=== PATIENT | male | born 1970 | race Two or more races ===

== ENCOUNTER 2020-09-03 17:05 | Inpatient (IN) | payer OTHER ==
[2020-09-03 22:31] VITALS: BMI 39.5
[2020-09-03] MEDS ORDERED: IBUPROFEN 400 MG TABLET (FP) PO PRN (23:20)
[2020-09-03] MEDS ORDERED: MAGNESIUM HYDROX 2400MG/30ML ORAL SUSPENSION 30 ML CUP PO PRN (23:20)
[2020-09-03] MEDS ORDERED: MENTHOL/PHENOL 1 EACH UD MM PRN (23:20)
[2020-09-03] MEDS ORDERED: ONDANSETRON *ODT* 4 MG TABLET SL PRN (23:20)
[2020-09-03] MEDS ORDERED: BISMUTH SUBSALICYLATE 524 MG/30 ML PO PRN (23:20)
[2020-09-03] MEDS ORDERED: diazePAM 5 MG TABLET PO PRN (23:20)
[2020-09-03] MEDS ORDERED: ACETAMINOPHEN 325 MG TABLET (FP) PO PRN ×2 (23:20)
[2020-09-03] MEDS ORDERED: MAG HYDROX/AL HYDROX/SIMETH 30 ML UNIT-DOSE CUP PO PRN (23:20)
[2020-09-03] MEDS ORDERED: MAGNESIUM CITRATE 300 ML BOTTLE PO PRN (23:20)
[2020-09-04] MEDS: diazePAM 5 MG TABLET PO SCH ×5 (02:49→22:11)
[2020-09-04] MEDS ORDERED: hydrOXYzine PAMOATE 25 MG CAPSULE (FP) PO PRN (09:20)
[2020-09-04] MEDS ORDERED: cloNIDine HCL 0.1 MG TABLET PO PRN (09:20)
[2020-09-04] MEDS: PRENATAL VITAMINS W/ FOLIC ACID TABLET (FP) PO SCH (10:48)
[2020-09-04] MEDS: NICOTINE 21 MG/24 HOURS TOPICAL PATCH TD SCH (10:48)
[2020-09-04] MEDS: METHOCARBAMOL 500 MG TABLET PO PRN (10:50)
[2020-09-04 12:33] LABS: HEMATOCRIT 42.9 % (35.4-49); HEMOGLOBIN 14.7 GM/dL (11.7-16.9); MCH 31.9 pg (25.7-33.7); MCHC 34.3 g/dl (32.0-35.9); MEAN PLT VOLUME 7.8 fl (7.5-11.1); PLATELET COUNT 240 10^3/uL (134-434); RBC 4.61 M/mm3 (4.00-5.60); RDW 13.3 % (11.9-15.9); WHITE BLOOD COUNT 5.3 K/mm3 (4.0-10.0)
[2020-09-04 12:53] LABS: ALBUMIN 3.7 g/dl (3.4-5.0)
[2020-09-04 13:05] LABS: CALCIUM 8.2 mg/dL (8.5-10.1)
[2020-09-04 13:06] LABS: BLOOD UREA NITROGEN 15.6 mg/dL (7-18)
[2020-09-04 13:09] LABS: CREATININE 1.1 mg/dL (0.55-1.3)
[2020-09-04 13:11] LABS: BILIRUBIN,TOTAL 1.1 mg/dL (0.2-1); TOT PROT 6.2 g/dl (6.4-8.2)
[2020-09-04] MEDS: ARIPiprazole 10 MG TABLET PO SCH (22:11)
[2020-09-04] MEDS: THIAMINE HCL 100 MG TABLET (FP) PO SCH (22:11)
[2020-09-04] MEDS: MELATONIN 5 MG TABLETS PO SCH (22:11)
[2020-09-05] MEDS: diazePAM 5 MG TABLET PO SCH ×3 (05:37→22:05)
[2020-09-05] MEDS ORDERED: LOPERAMIDE HCL 2 MG CAPSULE PO PRN (08:58)
[2020-09-05] MEDS ORDERED: DICYCLOMINE HCL 10 MG CAPSULE PO ONE (10:00)
[2020-09-05] MEDS: METHOCARBAMOL 500 MG TABLET PO PRN (10:12)
[2020-09-05] MEDS: PRENATAL VITAMINS W/ FOLIC ACID TABLET (FP) PO SCH (10:12)
[2020-09-05] MEDS: NICOTINE 21 MG/24 HOURS TOPICAL PATCH TD SCH (10:12)
[2020-09-05] MEDS: THIAMINE HCL 100 MG TABLET (FP) PO SCH (22:06)
[2020-09-05] MEDS: MELATONIN 5 MG TABLETS PO SCH (22:06)
[2020-09-05] MEDS: ARIPiprazole 10 MG TABLET PO SCH (22:06)
[2020-09-05] MEDS: NICOTINE POLACRILEX 2 MG GUM BUC PRN (22:06)
[2020-09-06] MEDS: diazePAM 5 MG TABLET PO SCH ×2 (05:36→17:52)
[2020-09-06] MEDS: PRENATAL VITAMINS W/ FOLIC ACID TABLET (FP) PO SCH (10:11)
[2020-09-06] MEDS: NICOTINE 21 MG/24 HOURS TOPICAL PATCH TD SCH (10:11)
[2020-09-06] MEDS: NICOTINE POLACRILEX 2 MG GUM BUC PRN ×2 (17:53→22:02)
[2020-09-06] MEDS: THIAMINE HCL 100 MG TABLET (FP) PO SCH (22:01)
[2020-09-06] MEDS: MELATONIN 5 MG TABLETS PO SCH (22:01)
[2020-09-06] MEDS: ARIPiprazole 10 MG TABLET PO SCH (22:01)
[2020-09-07] MEDS ORDERED: diazePAM 5 MG TABLET PO ONE (06:00)
[2020-09-07 09:05] VITALS: TEMP 97.1
[2020-09-07] MEDS: PRENATAL VITAMINS W/ FOLIC ACID TABLET (FP) PO SCH (10:06)
[2020-09-07] MEDS: NICOTINE POLACRILEX 2 MG GUM BUC PRN (10:07)
[2020-09-07] MEDS: NICOTINE 21 MG/24 HOURS TOPICAL PATCH TD SCH (10:08)
[2020-09-07 13:03] VITALS: BP 116/71; PULSE 69
== END 2020-09-07 12:11 | disposition other institution (70) | DRG 775 ==
LOC: YASAS 17:05 → Y3N 22:03
PROVIDERS: ADMIT Allergy & Immunology; ATTEND Allergy & Immunology
PROC: HZ2ZZZZ Detoxification Services for Substance Abuse Treatment (ICD-10-PCS; principal; 2020-09-03)
DX: F10.230 Alcohol dependence with withdrawal, uncomplicated (principal); F13.230 Sedative, hypnotic or anxiolytic dependence with withdrawal, uncomplicated; F17.210 Nicotine dependence, cigarettes, uncomplicated; F19.280 Other psychoactive substance dependence with psychoactive substance-induced anxiety disorder; F32.9 Major depressive disorder, single episode, unspecified; Z62.810 Personal history of physical and sexual abuse in childhood; Z86.69 Personal history of other diseases of the nervous system and sense organs; Z85.71 Personal history of Hodgkin lymphoma; Z91.013 Allergy to seafood
CPT/HCPCS: 36415; 80053; 85027; 86780; 93005; 93010; C9803; J0735; Q0162; U0003; U0005

== ENCOUNTER 2020-09-07 12:21 | Inpatient (IN) | payer OTHER ==
[2020-09-07] MEDS ORDERED: MAGNESIUM HYDROX 2400MG/30ML ORAL SUSPENSION 30 ML CUP PO PRN (12:52)
[2020-09-07] MEDS ORDERED: P-EPHED 60MG/TRIPROLIDI 2.5MG TABLET PO PRN (12:52)
[2020-09-07] MEDS ORDERED: MAG HYDROX/AL HYDROX/SIMETH 30 ML UNIT-DOSE CUP PO PRN (12:52)
[2020-09-07] MEDS ORDERED: LOPERAMIDE HCL 2 MG CAPSULE PO PRN (12:52)
[2020-09-07] MEDS ORDERED: guaiFENesin 200 MG/10 ML 10 ML UNIT-DOSE CUPS PO PRN (12:52)
[2020-09-07] MEDS ORDERED: MAGNESIUM CITRATE 300 ML BOTTLE PO PRN (12:52)
[2020-09-07] MEDS ORDERED: MENTHOL/PHENOL 1 EACH UD MM PRN (12:52)
[2020-09-07] MEDS: NICOTINE POLACRILEX 4 MG GUM BUC PRN ×2 (17:59→21:02)
[2020-09-07] MEDS ORDERED: ARIPiprazole 5 MG TABLET ONE (20:35)
[2020-09-07] MEDS: ARIPiprazole 10 MG TABLET PO SCH (20:59)
[2020-09-07] MEDS: THIAMINE HCL 100 MG TABLET (FP) PO SCH (21:00)
[2020-09-07] MEDS: MELATONIN 5 MG TABLETS PO SCH (21:00)
[2020-09-07] MEDS: hydrOXYzine PAMOATE 25 MG CAPSULE (FP) PO PRN (21:00)
[2020-09-08] MEDS: IBUPROFEN 400 MG TABLET (FP) PO PRN (05:58)
[2020-09-08] MEDS: NICOTINE POLACRILEX 4 MG GUM BUC PRN ×3 (05:59→21:23)
[2020-09-08] MEDS: PRENATAL VITAMINS W/ FOLIC ACID TABLET (FP) PO SCH (09:54)
[2020-09-08] MEDS ORDERED: buPROPion HCL 75 MG TABLET PO SCH (10:00)
[2020-09-08] MEDS ORDERED: MASKS NR ONE (19:10)
[2020-09-08] MEDS ORDERED: ARIPiprazole 5 MG TABLET ONE (19:43)
[2020-09-08] MEDS: ARIPiprazole 10 MG TABLET PO SCH (21:22)
[2020-09-08] MEDS: THIAMINE HCL 100 MG TABLET (FP) PO SCH (21:23)
[2020-09-08] MEDS: MELATONIN 5 MG TABLETS PO SCH (21:23)
[2020-09-08] MEDS: hydrOXYzine PAMOATE 25 MG CAPSULE (FP) PO PRN (21:23)
[2020-09-09] MEDS: PRENATAL VITAMINS W/ FOLIC ACID TABLET (FP) PO SCH (10:02)
[2020-09-09] MEDS: NICOTINE POLACRILEX 4 MG GUM BUC PRN ×2 (12:28→19:46)
[2020-09-09] MEDS: IBUPROFEN 400 MG TABLET (FP) PO PRN (12:28)
[2020-09-09] MEDS ORDERED: ARIPiprazole 5 MG TABLET ONE (19:26)
[2020-09-09] MEDS: THIAMINE HCL 100 MG TABLET (FP) PO SCH (21:09)
[2020-09-09] MEDS: hydrOXYzine PAMOATE 25 MG CAPSULE (FP) PO PRN (21:09)
[2020-09-09] MEDS: ARIPiprazole 10 MG TABLET PO SCH (21:09)
[2020-09-09] MEDS: MELATONIN 5 MG TABLETS PO SCH (21:09)
[2020-09-10] MEDS: PRENATAL VITAMINS W/ FOLIC ACID TABLET (FP) PO SCH (09:24)
[2020-09-10] MEDS: IBUPROFEN 400 MG TABLET (FP) PO PRN ×2 (15:13→21:34)
[2020-09-10] MEDS: NICOTINE POLACRILEX 4 MG GUM BUC PRN ×2 (17:41→21:36)
[2020-09-10] MEDS ORDERED: ARIPiprazole 5 MG TABLET ONE (19:23)
[2020-09-10] MEDS: hydrOXYzine PAMOATE 25 MG CAPSULE (FP) PO PRN (21:31)
[2020-09-10] MEDS: MELATONIN 5 MG TABLETS PO SCH (21:31)
[2020-09-10] MEDS: ARIPiprazole 10 MG TABLET PO SCH (21:31)
[2020-09-10] MEDS: THIAMINE HCL 100 MG TABLET (FP) PO SCH (21:31)
[2020-09-11] MEDS: PRENATAL VITAMINS W/ FOLIC ACID TABLET (FP) PO SCH (09:45)
[2020-09-11] MEDS: NICOTINE POLACRILEX 4 MG GUM BUC PRN ×2 (19:09→21:23)
[2020-09-11] MEDS ORDERED: ARIPiprazole 5 MG TABLET ONE (20:18)
[2020-09-11] MEDS: hydrOXYzine PAMOATE 25 MG CAPSULE (FP) PO PRN (21:23)
[2020-09-11] MEDS: ARIPiprazole 10 MG TABLET PO SCH (21:23)
[2020-09-11] MEDS: MELATONIN 5 MG TABLETS PO SCH (21:23)
[2020-09-11] MEDS: THIAMINE HCL 100 MG TABLET (FP) PO SCH (21:23)
[2020-09-12] MEDS: PRENATAL VITAMINS W/ FOLIC ACID TABLET (FP) PO SCH (09:25)
[2020-09-12] MEDS: NICOTINE POLACRILEX 4 MG GUM BUC PRN ×2 (17:32→21:21)
[2020-09-12] MEDS: THIAMINE HCL 100 MG TABLET (FP) PO SCH (21:18)
[2020-09-12] MEDS ORDERED: ARIPiprazole 5 MG TABLET ONE (21:18)
[2020-09-12] MEDS: MELATONIN 5 MG TABLETS PO SCH (21:18)
[2020-09-12] MEDS: QUEtiapine FUMARATE 100 MG TABLET (FP) PO SCH (21:19)
[2020-09-12] MEDS: ARIPiprazole 10 MG TABLET PO SCH (21:19)
[2020-09-13] MEDS: NICOTINE POLACRILEX 4 MG GUM BUC PRN ×2 (06:15→20:01)
[2020-09-13] MEDS: PRENATAL VITAMINS W/ FOLIC ACID TABLET (FP) PO SCH (09:13)
[2020-09-13] MEDS ORDERED: ARIPiprazole 5 MG TABLET ONE (20:08)
[2020-09-13] MEDS: MELATONIN 5 MG TABLETS PO SCH (21:22)
[2020-09-13] MEDS: QUEtiapine FUMARATE 100 MG TABLET (FP) PO SCH (21:23)
[2020-09-13] MEDS: hydrOXYzine PAMOATE 25 MG CAPSULE (FP) PO PRN (21:23)
[2020-09-13] MEDS: ARIPiprazole 10 MG TABLET PO SCH (21:23)
[2020-09-13] MEDS: THIAMINE HCL 100 MG TABLET (FP) PO SCH (21:23)
[2020-09-14] MEDS: ACETAMINOPHEN 325 MG TABLET (FP) PO PRN ×2 (06:41→11:44)
[2020-09-14] MEDS: PRENATAL VITAMINS W/ FOLIC ACID TABLET (FP) PO SCH (10:22)
[2020-09-14] MEDS: IBUPROFEN 400 MG TABLET (FP) PO PRN (17:23)
[2020-09-14] MEDS: NICOTINE POLACRILEX 4 MG GUM BUC PRN ×2 (17:24→21:02)
[2020-09-14] MEDS ORDERED: ARIPiprazole 5 MG TABLET ONE (19:51)
[2020-09-14] MEDS: hydrOXYzine PAMOATE 25 MG CAPSULE (FP) PO PRN (20:59)
[2020-09-14] MEDS: MELATONIN 5 MG TABLETS PO SCH (21:00)
[2020-09-14] MEDS: QUEtiapine FUMARATE 100 MG TABLET (FP) PO SCH (21:00)
[2020-09-14] MEDS: ARIPiprazole 10 MG TABLET PO SCH (21:00)
[2020-09-14] MEDS: THIAMINE HCL 100 MG TABLET (FP) PO SCH (21:00)
[2020-09-15] MEDS: ACETAMINOPHEN 325 MG TABLET (FP) PO PRN ×2 (06:25→17:20)
[2020-09-15] MEDS: NICOTINE POLACRILEX 4 MG GUM BUC PRN ×3 (06:27→21:21)
[2020-09-15] MEDS: PRENATAL VITAMINS W/ FOLIC ACID TABLET (FP) PO SCH (09:14)
[2020-09-15] MEDS ORDERED: ARIPiprazole 5 MG TABLET ONE (20:25)
[2020-09-15] MEDS: MELATONIN 5 MG TABLETS PO SCH (21:18)
[2020-09-15] MEDS: hydrOXYzine PAMOATE 25 MG CAPSULE (FP) PO PRN (21:18)
[2020-09-15] MEDS: THIAMINE HCL 100 MG TABLET (FP) PO SCH (21:19)
[2020-09-15] MEDS: QUEtiapine FUMARATE 100 MG TABLET (FP) PO SCH (21:19)
[2020-09-15] MEDS: ARIPiprazole 10 MG TABLET PO SCH (21:20)
[2020-09-16] MEDS: ACETAMINOPHEN 325 MG TABLET (FP) PO PRN ×2 (06:30→15:04)
[2020-09-16] MEDS: NICOTINE POLACRILEX 4 MG GUM BUC PRN ×3 (06:30→21:04)
[2020-09-16] MEDS: PRENATAL VITAMINS W/ FOLIC ACID TABLET (FP) PO SCH (09:04)
[2020-09-16] MEDS ORDERED: ARIPiprazole 5 MG TABLET ONE (19:36)
[2020-09-16] MEDS: THIAMINE HCL 100 MG TABLET (FP) PO SCH (21:03)
[2020-09-16] MEDS: ARIPiprazole 10 MG TABLET PO SCH (21:03)
[2020-09-16] MEDS: QUEtiapine FUMARATE 100 MG TABLET (FP) PO SCH (21:03)
[2020-09-16] MEDS: MELATONIN 5 MG TABLETS PO SCH (21:03)
[2020-09-16] MEDS: hydrOXYzine PAMOATE 25 MG CAPSULE (FP) PO PRN (21:04)
[2020-09-17] MEDS: ACETAMINOPHEN 325 MG TABLET (FP) PO PRN (06:26)
[2020-09-17] MEDS: NICOTINE POLACRILEX 4 MG GUM BUC PRN (06:28)
[2020-09-17 07:02] VITALS: BP 117/76; PULSE 63; TEMP 96.9
== END 2020-09-17 08:48 | disposition home or self-care (01) | DRG 772 ==
LOC: YASAS 12:21 → Y3E 12:23
PROVIDERS: ADMIT Allergy & Immunology; ATTEND Allergy & Immunology
PROC: HZ42ZZZ Group Counseling for Substance Abuse Treatment, Cognitive-Behavioral (ICD-10-PCS; principal; 2020-09-07)
DX: F10.20 Alcohol dependence, uncomplicated (principal); F13.20 Sedative, hypnotic or anxiolytic dependence, uncomplicated; F17.210 Nicotine dependence, cigarettes, uncomplicated; F19.280 Other psychoactive substance dependence with psychoactive substance-induced anxiety disorder; F19.282 Other psychoactive substance dependence with psychoactive substance-induced sleep disorder; F19.24 Other psychoactive substance dependence with psychoactive substance-induced mood disorder; Z85.71 Personal history of Hodgkin lymphoma; Z88.8 Allergy status to other drugs, medicaments and biological substances; Z91.013 Allergy to seafood; Z91.018 Allergy to other foods

== ENCOUNTER 2020-09-26 02:36 | Inpatient (IN) | payer OTHER ==
[2020-09-26] MEDS ORDERED: ACETAMINOPHEN 325 MG TABLET (FP) PO PRN ×2 (03:35)
[2020-09-26] MEDS ORDERED: MAGNESIUM HYDROX 2400MG/30ML ORAL SUSPENSION 30 ML CUP PO PRN (03:35)
[2020-09-26] MEDS ORDERED: MAG HYDROX/AL HYDROX/SIMETH 30 ML UNIT-DOSE CUP PO PRN (03:35)
[2020-09-26] MEDS ORDERED: METHOCARBAMOL 500 MG TABLET PO PRN (03:35)
[2020-09-26] MEDS ORDERED: MAGNESIUM CITRATE 300 ML BOTTLE PO PRN (03:35)
[2020-09-26] MEDS ORDERED: MENTHOL/PHENOL 1 EACH UD MM PRN (03:35)
[2020-09-26] MEDS ORDERED: BISMUTH SUBSALICYLATE 524 MG/30 ML PO PRN (03:35)
[2020-09-26] MEDS ORDERED: IBUPROFEN 400 MG TABLET (FP) PO PRN (03:35)
[2020-09-26] MEDS ORDERED: diazePAM 5 MG TABLET PO PRN (03:39)
[2020-09-26 03:51] VITALS: BMI 40.3
[2020-09-26] MEDS ORDERED: diazePAM 5 MG TABLET ONE (06:11)
[2020-09-26] MEDS: diazePAM 5 MG TABLET PO SCH ×4 (06:15→22:11)
[2020-09-26] MEDS: PRENATAL VITAMINS W/ FOLIC ACID TABLET (FP) PO SCH (10:29)
[2020-09-26] MEDS: NICOTINE 21 MG/24 HOURS TOPICAL PATCH TD SCH (10:29)
[2020-09-26] MEDS: ONDANSETRON *ODT* 4 MG TABLET SL PRN (10:31)
[2020-09-26 13:23] LABS: HEMOGLOBIN 15.2 GM/dL (11.7-16.9); MCH 33.1 pg (25.7-33.7); MCHC 36.1 g/dl (32.0-35.9); MEAN CELL VOLUME 91.9 fl (80-96); PLATELET COUNT 303 10^3/uL (134-434); RBC 4.58 M/mm3 (4.00-5.60); RDW 13.7 % (11.9-15.9)
[2020-09-26 13:27] LABS: CALCIUM 8.5 mg/dL (8.5-10.1)
[2020-09-26 13:28] LABS: ALBUMIN 4.2 g/dl (3.4-5.0); BLOOD UREA NITROGEN 26.6 mg/dL (7-18)
[2020-09-26 13:31] LABS: CREATININE 1.3 mg/dL (0.55-1.3)
[2020-09-26 13:33] LABS: TOT PROT 6.9 g/dl (6.4-8.2)
[2020-09-26] MEDS: NICOTINE POLACRILEX 4 MG GUM BUC PRN ×2 (17:15→22:15)
[2020-09-26] MEDS: ARIPiprazole 10 MG TABLET PO SCH (22:12)
[2020-09-26] MEDS: MELATONIN 5 MG TABLETS PO SCH (22:12)
[2020-09-26] MEDS: QUEtiapine FUMARATE 100 MG TABLET (FP) PO SCH (22:12)
[2020-09-26] MEDS: THIAMINE HCL 100 MG TABLET (FP) PO SCH (22:13)
[2020-09-27] MEDS: diazePAM 5 MG TABLET PO SCH ×3 (05:31→22:02)
[2020-09-27] MEDS: ONDANSETRON *ODT* 4 MG TABLET SL PRN (05:32)
[2020-09-27] MEDS: NICOTINE 21 MG/24 HOURS TOPICAL PATCH TD SCH (10:04)
[2020-09-27] MEDS: NICOTINE POLACRILEX 4 MG GUM BUC PRN (10:05)
[2020-09-27] MEDS: PRENATAL VITAMINS W/ FOLIC ACID TABLET (FP) PO SCH (10:05)
[2020-09-27] MEDS: MELATONIN 5 MG TABLETS PO SCH (22:03)
[2020-09-27] MEDS: QUEtiapine FUMARATE 100 MG TABLET (FP) PO SCH (22:03)
[2020-09-27] MEDS: THIAMINE HCL 100 MG TABLET (FP) PO SCH (22:03)
[2020-09-27] MEDS: ARIPiprazole 10 MG TABLET PO SCH (22:03)
[2020-09-28] MEDS: diazePAM 5 MG TABLET PO SCH ×2 (06:05→17:18)
[2020-09-28] MEDS: PRENATAL VITAMINS W/ FOLIC ACID TABLET (FP) PO SCH (10:23)
[2020-09-28] MEDS: NICOTINE 21 MG/24 HOURS TOPICAL PATCH TD SCH (10:23)
[2020-09-28] MEDS: NICOTINE POLACRILEX 4 MG GUM BUC PRN ×3 (14:04→22:01)
[2020-09-28] MEDS: ARIPiprazole 10 MG TABLET PO SCH (22:00)
[2020-09-28] MEDS: QUEtiapine FUMARATE 100 MG TABLET (FP) PO SCH (22:00)
[2020-09-28] MEDS: MELATONIN 5 MG TABLETS PO SCH (22:01)
[2020-09-28] MEDS: THIAMINE HCL 100 MG TABLET (FP) PO SCH (22:01)
[2020-09-29] MEDS ORDERED: diazePAM 5 MG TABLET PO ONE (06:00)
[2020-09-29] MEDS: NICOTINE POLACRILEX 4 MG GUM BUC PRN (06:10)
[2020-09-29 06:41] VITALS: BP 137/85; PULSE 85; TEMP 97.2
== END 2020-09-29 09:35 | disposition home or self-care (01) | DRG 775 ==
LOC: YASAS 02:36 → Y3N 08:12 → Y6N 09:27
PROVIDERS: ADMIT Allergy & Immunology; ATTEND Allergy & Immunology
PROC: HZ2ZZZZ Detoxification Services for Substance Abuse Treatment (ICD-10-PCS; principal; 2020-09-26)
DX: F10.230 Alcohol dependence with withdrawal, uncomplicated (principal); F13.230 Sedative, hypnotic or anxiolytic dependence with withdrawal, uncomplicated; F17.210 Nicotine dependence, cigarettes, uncomplicated; F19.280 Other psychoactive substance dependence with psychoactive substance-induced anxiety disorder; F19.282 Other psychoactive substance dependence with psychoactive substance-induced sleep disorder; F32.9 Major depressive disorder, single episode, unspecified; R79.89 Other specified abnormal findings of blood chemistry; R73.9 Hyperglycemia, unspecified; R00.0 Tachycardia, unspecified; Z88.8 Allergy status to other drugs, medicaments and biological substances; Z91.013 Allergy to seafood; Z91.018 Allergy to other foods; Z86.69 Personal history of other diseases of the nervous system and sense organs; Z62.810 Personal history of physical and sexual abuse in childhood; Z56.0 Unemployment, unspecified; Z85.71 Personal history of Hodgkin lymphoma
CPT/HCPCS: 36415; 80053; 85027; 86780; C9803; Q0162; U0003; U0005

== ENCOUNTER 2021-03-05 14:05 | Inpatient (IN) | payer OTHER ==
[2021-03-05] MEDS ORDERED: NICOTINE 10 MG CARTRIDGE (INHALER) IH PRN (14:34)
[2021-03-05] MEDS ORDERED: ONDANSETRON *ODT* 4 MG TABLET SL PRN (14:34)
[2021-03-05] MEDS ORDERED: BISMUTH SUBSALICYLATE 524 MG/30 ML PO PRN (14:34)
[2021-03-05] MEDS ORDERED: ACETAMINOPHEN 325 MG TABLET (FP) PO PRN (14:34)
[2021-03-05] MEDS ORDERED: MAGNESIUM CITRATE 300 ML BOTTLE PO PRN (14:34)
[2021-03-05] MEDS ORDERED: MAG HYDROX/AL HYDROX/SIMETH 30 ML UNIT-DOSE CUP PO PRN (14:34)
[2021-03-05] MEDS ORDERED: IBUPROFEN 400 MG TABLET (FP) PO PRN (14:34)
[2021-03-05] MEDS ORDERED: MENTHOL/PHENOL 1 EACH UD MM PRN (14:34)
[2021-03-05] MEDS ORDERED: MAGNESIUM HYDROX 2400MG/30ML ORAL SUSPENSION 30 ML CUP PO PRN (14:34)
[2021-03-05 17:34] VITALS: BMI 41.1
[2021-03-05] MEDS: PRENATAL VITAMINS W/ FOLIC ACID TABLET (FP) PO SCH (20:08)
[2021-03-05] MEDS: NICOTINE 21 MG/24 HOURS TOPICAL PATCH TD SCH (20:09)
[2021-03-05] MEDS: hydrOXYzine PAMOATE 25 MG CAPSULE (FP) PO SCH ×2 (20:09→22:33)
[2021-03-05] MEDS: THIAMINE HCL 100 MG TABLET (FP) PO SCH (22:33)
[2021-03-05] MEDS: MELATONIN 5 MG TABLETS PO SCH (22:33)
[2021-03-05] MEDS: diazePAM 5 MG TABLET PO SCH (22:34)
[2021-03-06] MEDS: hydrOXYzine PAMOATE 25 MG CAPSULE (FP) PO SCH ×5 (06:04→22:49)
[2021-03-06] MEDS: diazePAM 5 MG TABLET PO SCH ×4 (06:05→22:51)
[2021-03-06] MEDS: PRENATAL VITAMINS W/ FOLIC ACID TABLET (FP) PO SCH (10:20)
[2021-03-06] MEDS: NICOTINE 21 MG/24 HOURS TOPICAL PATCH TD SCH (10:25)
[2021-03-06 11:53] LABS: ALBUMIN 3.6 g/dl (3.4-5.0); BLOOD UREA NITROGEN 18.3 mg/dL (7-18); CALCIUM 8.6 mg/dL (8.5-10.1)
[2021-03-06 11:56] LABS: CREATININE 1.1 mg/dL (0.55-1.3)
[2021-03-06 11:58] LABS: TOT PROT 5.7 g/dl (6.4-8.2)
[2021-03-06 12:09] LABS: HEMATOCRIT 42.4 % (35.4-49); HEMOGLOBIN 14.3 GM/dL (11.7-16.9); MCH 31.5 pg (25.7-33.7); MCHC 33.7 g/dl (32.0-35.9); MEAN CELL VOLUME 93.5 fl (80-96); MEAN PLT VOLUME 8.3 fl (7.5-11.1); PLATELET COUNT 231 10^3/uL (134-434); RBC 4.54 M/mm3 (4.00-5.60); RDW 13.9 % (11.9-15.9); WHITE BLOOD COUNT 4.3 K/mm3 (4.0-10.0)
[2021-03-06] MEDS: ACETAMINOPHEN 325 MG TABLET (FP) PO PRN (18:25)
[2021-03-06] MEDS: MELATONIN 5 MG TABLETS PO SCH (22:49)
[2021-03-06] MEDS: METHYL SALICYLATE/MENTHOL OINT 30 GM TUBE TP SCH (22:49)
[2021-03-06] MEDS: QUEtiapine FUMARATE 100 MG TABLET (FP) PO SCH (22:50)
[2021-03-06] MEDS: THIAMINE HCL 100 MG TABLET (FP) PO SCH (22:50)
[2021-03-07] MEDS: hydrOXYzine PAMOATE 25 MG CAPSULE (FP) PO SCH ×5 (07:07→22:00)
[2021-03-07] MEDS: diazePAM 5 MG TABLET PO SCH ×3 (07:07→21:58)
[2021-03-07] MEDS: ARIPiprazole 10 MG TABLET PO SCH (10:51)
[2021-03-07] MEDS: METHYL SALICYLATE/MENTHOL OINT 30 GM TUBE TP SCH ×2 (10:51→21:58)
[2021-03-07] MEDS: PRENATAL VITAMINS W/ FOLIC ACID TABLET (FP) PO SCH (10:52)
[2021-03-07] MEDS: diazePAM 5 MG TABLET PO PRN ×2 (10:52→17:40)
[2021-03-07] MEDS: NICOTINE 21 MG/24 HOURS TOPICAL PATCH TD SCH (11:01)
[2021-03-07] MEDS: ACETAMINOPHEN 325 MG TABLET (FP) PO PRN (17:40)
[2021-03-07] MEDS: METHOCARBAMOL 500 MG TABLET PO PRN (21:58)
[2021-03-07] MEDS: MELATONIN 5 MG TABLETS PO SCH (21:59)
[2021-03-07] MEDS: QUEtiapine FUMARATE 100 MG TABLET (FP) PO SCH (22:00)
[2021-03-07] MEDS: THIAMINE HCL 100 MG TABLET (FP) PO SCH (22:00)
[2021-03-08] MEDS: diazePAM 5 MG TABLET PO SCH ×2 (06:18→18:50)
[2021-03-08] MEDS: hydrOXYzine PAMOATE 25 MG CAPSULE (FP) PO SCH ×5 (06:19→22:14)
[2021-03-08] MEDS: PRENATAL VITAMINS W/ FOLIC ACID TABLET (FP) PO SCH (09:40)
[2021-03-08] MEDS: METHYL SALICYLATE/MENTHOL OINT 30 GM TUBE TP SCH ×2 (09:41→23:01)
[2021-03-08] MEDS: ARIPiprazole 10 MG TABLET PO SCH (09:41)
[2021-03-08] MEDS: NICOTINE 21 MG/24 HOURS TOPICAL PATCH TD SCH (09:43)
[2021-03-08] MEDS: ACETAMINOPHEN 325 MG TABLET (FP) PO PRN (19:15)
[2021-03-08] MEDS: METHOCARBAMOL 500 MG TABLET PO PRN (22:14)
[2021-03-08] MEDS: THIAMINE HCL 100 MG TABLET (FP) PO SCH (22:15)
[2021-03-08] MEDS: QUEtiapine FUMARATE 100 MG TABLET (FP) PO SCH (22:15)
[2021-03-08] MEDS: MELATONIN 5 MG TABLETS PO SCH (22:15)
[2021-03-09] MEDS ORDERED: diazePAM 5 MG TABLET PO ONE (06:00)
[2021-03-09] MEDS: hydrOXYzine PAMOATE 25 MG CAPSULE (FP) PO SCH ×2 (06:36→10:59)
[2021-03-09] MEDS: METHYL SALICYLATE/MENTHOL OINT 30 GM TUBE TP SCH (10:59)
[2021-03-09] MEDS: NICOTINE 21 MG/24 HOURS TOPICAL PATCH TD SCH (10:59)
[2021-03-09] MEDS: PRENATAL VITAMINS W/ FOLIC ACID TABLET (FP) PO SCH (10:59)
[2021-03-09] MEDS: ARIPiprazole 10 MG TABLET PO SCH (10:59)
[2021-03-09 14:00] VITALS: BP 151/81; PULSE 91; TEMP 97.7
== END 2021-03-09 13:22 | disposition home or self-care (01) | DRG 773 ==
LOC: YASAS 14:05 → Y3N 19:17
PROVIDERS: ADMIT Allergy & Immunology; ATTEND Allergy & Immunology
PROC: HZ2ZZZZ Detoxification Services for Substance Abuse Treatment (ICD-10-PCS; principal; 2021-03-05)
DX: F10.230 Alcohol dependence with withdrawal, uncomplicated (principal); F11.10 Opioid abuse, uncomplicated; F14.20 Cocaine dependence, uncomplicated; F13.20 Sedative, hypnotic or anxiolytic dependence, uncomplicated; F17.210 Nicotine dependence, cigarettes, uncomplicated; F19.280 Other psychoactive substance dependence with psychoactive substance-induced anxiety disorder; F19.282 Other psychoactive substance dependence with psychoactive substance-induced sleep disorder; F19.24 Other psychoactive substance dependence with psychoactive substance-induced mood disorder; F31.9 Bipolar disorder, unspecified; U07.1 COVID-19; Z86.69 Personal history of other diseases of the nervous system and sense organs; Z56.0 Unemployment, unspecified; Z59.00 Homelessness unspecified
CPT/HCPCS: 36415; 80053; 85027; 86780; C9803; Q0162; U0003; U0005

== ENCOUNTER 2021-05-11 18:39 | Inpatient (IN) | payer OTHER ==
[2021-05-11 18:53] VITALS: BMI 41.9
[2021-05-11] MEDS ORDERED: MAGNESIUM CITRATE 300 ML BOTTLE PO PRN (21:31)
[2021-05-11] MEDS ORDERED: ACETAMINOPHEN 325 MG TABLET (FP) PO PRN ×2 (21:31)
[2021-05-11] MEDS ORDERED: P-EPHED 60MG/TRIPROLIDI 2.5MG TABLET PO PRN (21:31)
[2021-05-11] MEDS ORDERED: DICYCLOMINE HCL 10 MG CAPSULE PO PRN (21:31)
[2021-05-11] MEDS ORDERED: METHOCARBAMOL 500 MG TABLET PO PRN (21:31)
[2021-05-11] MEDS ORDERED: MAG HYDROX/AL HYDROX/SIMETH 30 ML UNIT-DOSE CUP PO PRN (21:31)
[2021-05-11] MEDS ORDERED: MAGNESIUM HYDROX 2400MG/30ML ORAL SUSPENSION 30 ML CUP PO PRN (21:31)
[2021-05-11] MEDS ORDERED: MENTHOL/PHENOL 1 EACH UD MM PRN (21:31)
[2021-05-11] MEDS ORDERED: ONDANSETRON *ODT* 4 MG TABLET SL PRN (21:31)
[2021-05-11] MEDS ORDERED: LOPERAMIDE HCL 2 MG CAPSULE PO PRN (21:31)
[2021-05-11] MEDS ORDERED: guaiFENesin 200 MG/10 ML 10 ML UNIT-DOSE CUPS PO PRN (21:31)
[2021-05-11] MEDS ORDERED: IBUPROFEN 400 MG TABLET (FP) PO PRN (21:31)
[2021-05-11] MEDS ORDERED: BISMUTH SUBSALICYLATE 524 MG/30 ML PO PRN (21:31)
[2021-05-11] MEDS ORDERED: chlordiazePOXIDE HCL 25 MG CAPSULE PO PRN (21:31)
[2021-05-11] MEDS ORDERED: chlordiazePOXIDE HCL 25 MG CAPSULE ONE (22:56)
[2021-05-11] MEDS: chlordiazePOXIDE HCL 25 MG CAPSULE PO SCH (22:57)
[2021-05-11] MEDS: THIAMINE HCL 100 MG TABLET (FP) PO SCH (22:58)
[2021-05-11] MEDS: MELATONIN 5 MG TABLETS PO SCH (22:58)
[2021-05-11] MEDS: CEPHALEXIN MONOHYDRATE 250 MG CAPSULE (FP) PO SCH (23:49)
[2021-05-12] MEDS: chlordiazePOXIDE HCL 25 MG CAPSULE PO SCH ×4 (06:25→22:32)
[2021-05-12] MEDS: CEPHALEXIN MONOHYDRATE 250 MG CAPSULE (FP) PO SCH ×4 (06:26→23:03)
[2021-05-12] MEDS: PRENATAL VITAMINS W/ FOLIC ACID TABLET (FP) PO SCH (10:14)
[2021-05-12] MEDS: BACITRACIN 0.9 GM PACKET TP SCH (10:16)
[2021-05-12] MEDS: NICOTINE 21 MG/24 HOURS TOPICAL PATCH TD SCH (10:19)
[2021-05-12 12:10] LABS: HEMATOCRIT 43.2 % (35.4-49); HEMOGLOBIN 14.8 GM/dL (11.7-16.9); MCH 32.4 pg (25.7-33.7); MCHC 34.1 g/dl (32.0-35.9); MEAN CELL VOLUME 94.9 fl (80-96); MEAN PLT VOLUME 7.8 fl (7.5-11.1); PLATELET COUNT 219 10^3/uL (134-434); RBC 4.56 M/mm3 (4.00-5.60); RDW 13.5 % (11.9-15.9); WHITE BLOOD COUNT 5.8 K/mm3 (4.0-10.0)
[2021-05-12 12:17] LABS: ALBUMIN 3.6 g/dl (3.4-5.0); BLOOD UREA NITROGEN 17.4 mg/dL (7-18); CALCIUM 8.4 mg/dL (8.5-10.1)
[2021-05-12 12:19] LABS: CREATININE 1.2 mg/dL (0.55-1.3)
[2021-05-12 12:22] LABS: BILIRUBIN,TOTAL 0.9 mg/dL (0.2-1); TOT PROT 5.9 g/dl (6.4-8.2)
[2021-05-12] MEDS: NICOTINE POLACRILEX 4 MG GUM BUC PRN ×2 (17:54→22:33)
[2021-05-12] MEDS: MELATONIN 5 MG TABLETS PO SCH (22:32)
[2021-05-12] MEDS: THIAMINE HCL 100 MG TABLET (FP) PO SCH (22:32)
[2021-05-13] MEDS: BACITRACIN 0.9 GM PACKET TP SCH (10:16)
[2021-05-13] MEDS: chlordiazePOXIDE HCL 25 MG CAPSULE PO SCH ×3 (10:17→22:59)
[2021-05-13] MEDS: NICOTINE 21 MG/24 HOURS TOPICAL PATCH TD SCH (10:18)
[2021-05-13] MEDS: PRENATAL VITAMINS W/ FOLIC ACID TABLET (FP) PO SCH (10:18)
[2021-05-13] MEDS: CEPHALEXIN MONOHYDRATE 250 MG CAPSULE (FP) PO SCH (18:00)
[2021-05-13] MEDS: NICOTINE POLACRILEX 4 MG GUM BUC PRN (18:13)
[2021-05-13] MEDS: THIAMINE HCL 100 MG TABLET (FP) PO SCH ×2 (22:47→22:59)
[2021-05-13] MEDS: MELATONIN 5 MG TABLETS PO SCH ×2 (22:47→22:59)
[2021-05-14] MEDS ORDERED: chlordiazePOXIDE HCL 10 MG CAPSULE PO PRN
[2021-05-14] MEDS: chlordiazePOXIDE HCL 25 MG CAPSULE PO SCH (00:57)
[2021-05-14] MEDS: CEPHALEXIN MONOHYDRATE 250 MG CAPSULE (FP) PO SCH ×6 (00:58→23:06)
[2021-05-14] MEDS: chlordiazePOXIDE HCL 10 MG CAPSULE PO SCH ×4 (07:42→22:12)
[2021-05-14 10:09] LABS: SARS-CoV-2 NAA Not Detected (Not Detected)
[2021-05-14] MEDS: BACITRACIN 0.9 GM PACKET TP SCH (10:12)
[2021-05-14] MEDS: NICOTINE 21 MG/24 HOURS TOPICAL PATCH TD SCH (10:13)
[2021-05-14] MEDS: PRENATAL VITAMINS W/ FOLIC ACID TABLET (FP) PO SCH (10:13)
[2021-05-14] MEDS: THIAMINE HCL 100 MG TABLET (FP) PO SCH (22:12)
[2021-05-14] MEDS: MELATONIN 5 MG TABLETS PO SCH (22:12)
[2021-05-15] MEDS: chlordiazePOXIDE HCL 10 MG CAPSULE PO SCH ×2 (05:37→18:07)
[2021-05-15] MEDS: CEPHALEXIN MONOHYDRATE 250 MG CAPSULE (FP) PO SCH ×4 (05:37→22:45)
[2021-05-15] MEDS: NICOTINE 21 MG/24 HOURS TOPICAL PATCH TD SCH (10:14)
[2021-05-15] MEDS: PRENATAL VITAMINS W/ FOLIC ACID TABLET (FP) PO SCH (10:14)
[2021-05-15] MEDS: BACITRACIN 0.9 GM PACKET TP SCH (10:14)
[2021-05-15] MEDS: THIAMINE HCL 100 MG TABLET (FP) PO SCH (22:02)
[2021-05-15] MEDS: MELATONIN 5 MG TABLETS PO SCH (22:02)
[2021-05-16] MEDS ORDERED: chlordiazePOXIDE HCL 10 MG CAPSULE PO ONE (05:00)
[2021-05-16] MEDS: CEPHALEXIN MONOHYDRATE 250 MG CAPSULE (FP) PO SCH ×3 (07:58→15:15)
[2021-05-16] MEDS: PRENATAL VITAMINS W/ FOLIC ACID TABLET (FP) PO SCH (10:16)
[2021-05-16] MEDS: BACITRACIN 0.9 GM PACKET TP SCH (10:17)
[2021-05-16] MEDS: NICOTINE 21 MG/24 HOURS TOPICAL PATCH TD SCH (10:17)
[2021-05-16] MEDS: NICOTINE POLACRILEX 4 MG GUM BUC PRN (10:19)
[2021-05-16 13:10] VITALS: BP 150/90; PULSE 81; TEMP 97.1
== END 2021-05-16 18:12 | disposition other institution (70) | DRG 775 ==
LOC: YASAS 18:39 → Y3N 22:01
PROVIDERS: ADMIT Allergy & Immunology; ATTEND Allergy & Immunology
PROC: HZ2ZZZZ Detoxification Services for Substance Abuse Treatment (ICD-10-PCS; principal; 2021-05-11)
DX: F10.230 Alcohol dependence with withdrawal, uncomplicated (principal); F13.20 Sedative, hypnotic or anxiolytic dependence, uncomplicated; F17.210 Nicotine dependence, cigarettes, uncomplicated; F19.280 Other psychoactive substance dependence with psychoactive substance-induced anxiety disorder; F19.282 Other psychoactive substance dependence with psychoactive substance-induced sleep disorder; Z87.2 Personal history of diseases of the skin and subcutaneous tissue; Z91.018 Allergy to other foods; Z91.013 Allergy to seafood
CPT/HCPCS: 36415; 80053; 85027; 86780; C9803-CS; U0003; U0005

== ENCOUNTER 2021-05-16 18:28 | Inpatient (IN) | payer OTHER ==
[2021-05-16] MEDS ORDERED: IBUPROFEN 400 MG TABLET (FP) PO PRN (19:54)
[2021-05-16] MEDS ORDERED: MAGNESIUM CITRATE 300 ML BOTTLE PO PRN (19:54)
[2021-05-16] MEDS ORDERED: guaiFENesin 200 MG/10 ML 10 ML UNIT-DOSE CUPS PO PRN (19:54)
[2021-05-16] MEDS ORDERED: MENTHOL/PHENOL 1 EACH UD MM PRN (19:54)
[2021-05-16] MEDS ORDERED: MAG HYDROX/AL HYDROX/SIMETH 30 ML UNIT-DOSE CUP PO PRN (19:54)
[2021-05-16] MEDS ORDERED: NICOTINE 10 MG CARTRIDGE (INHALER) IH PRN (19:54)
[2021-05-16] MEDS ORDERED: MAGNESIUM HYDROX 2400MG/30ML ORAL SUSPENSION 30 ML CUP PO PRN (19:54)
[2021-05-16] MEDS ORDERED: ACETAMINOPHEN 325 MG TABLET (FP) PO PRN (19:54)
[2021-05-16] MEDS ORDERED: P-EPHED 60MG/TRIPROLIDI 2.5MG TABLET PO PRN (19:54)
[2021-05-16] MEDS ORDERED: LOPERAMIDE HCL 2 MG CAPSULE PO PRN (19:54)
[2021-05-16] MEDS: THIAMINE HCL 100 MG TABLET (FP) PO SCH (21:38)
[2021-05-16] MEDS: MELATONIN 5 MG TABLETS PO SCH (21:38)
[2021-05-16] MEDS: hydrOXYzine PAMOATE 25 MG CAPSULE (FP) PO PRN (21:39)
[2021-05-17] MEDS: CEPHALEXIN MONOHYDRATE 250 MG CAPSULE (FP) PO SCH ×5 (00:34→23:09)
[2021-05-17] MEDS: PRENATAL VITAMINS W/ FOLIC ACID TABLET (FP) PO SCH (10:15)
[2021-05-17] MEDS: THIAMINE HCL 100 MG TABLET (FP) PO SCH (21:34)
[2021-05-17] MEDS: MELATONIN 5 MG TABLETS PO SCH (21:34)
[2021-05-17] MEDS: hydrOXYzine PAMOATE 25 MG CAPSULE (FP) PO PRN (21:35)
[2021-05-18] MEDS: CEPHALEXIN MONOHYDRATE 250 MG CAPSULE (FP) PO SCH ×3 (07:48→18:08)
[2021-05-18] MEDS: NICOTINE POLACRILEX 2 MG GUM BUC PRN (07:49)
[2021-05-18] MEDS: PRENATAL VITAMINS W/ FOLIC ACID TABLET (FP) PO SCH (10:15)
[2021-05-18] MEDS: hydrOXYzine PAMOATE 25 MG CAPSULE (FP) PO PRN (21:02)
[2021-05-18] MEDS: THIAMINE HCL 100 MG TABLET (FP) PO SCH (21:03)
[2021-05-18] MEDS: MELATONIN 5 MG TABLETS PO SCH (21:03)
[2021-05-19] MEDS: CEPHALEXIN MONOHYDRATE 250 MG CAPSULE (FP) PO SCH ×4 (00:55→18:08)
[2021-05-19] MEDS: NICOTINE POLACRILEX 2 MG GUM BUC PRN ×3 (07:48→21:05)
[2021-05-19] MEDS: PRENATAL VITAMINS W/ FOLIC ACID TABLET (FP) PO SCH (10:16)
[2021-05-19] MEDS: MELATONIN 5 MG TABLETS PO SCH (21:03)
[2021-05-19] MEDS: THIAMINE HCL 100 MG TABLET (FP) PO SCH (21:03)
[2021-05-19] MEDS: hydrOXYzine PAMOATE 25 MG CAPSULE (FP) PO PRN (21:04)
[2021-05-20] MEDS: CEPHALEXIN MONOHYDRATE 250 MG CAPSULE (FP) PO SCH ×2 (01:00→07:03)
[2021-05-20] MEDS: NICOTINE POLACRILEX 2 MG GUM BUC PRN ×2 (07:04→09:12)
[2021-05-20 07:10] VITALS: TEMP 97.6
[2021-05-20] MEDS: PRENATAL VITAMINS W/ FOLIC ACID TABLET (FP) PO SCH (09:11)
[2021-05-20 09:32] VITALS: BP 134/80; PULSE 76
[2021-05-21 05:08] LABS: SARS-CoV-2 NAA Not Detected (Not Detected)
== END 2021-05-20 09:35 | disposition home or self-care (01) | DRG 772 ==
LOC: YASAS 18:28 → Y3E 18:31
PROVIDERS: ADMIT Allergy & Immunology; ATTEND Allergy & Immunology
PROC: HZ42ZZZ Group Counseling for Substance Abuse Treatment, Cognitive-Behavioral (ICD-10-PCS; principal; 2021-05-16)
DX: F10.20 Alcohol dependence, uncomplicated (principal); F14.20 Cocaine dependence, uncomplicated; F13.20 Sedative, hypnotic or anxiolytic dependence, uncomplicated; F17.210 Nicotine dependence, cigarettes, uncomplicated; F31.9 Bipolar disorder, unspecified; L02.422 Furuncle of left axilla; Z98.890 Other specified postprocedural states; Z86.16 Personal history of COVID-19; Z59.00 Homelessness unspecified; Z85.71 Personal history of Hodgkin lymphoma
CPT/HCPCS: C9803-CS; U0003; U0005